=== PATIENT | female | born 1940 | race Caucasian/White ===

== ENCOUNTER 2018-12-29 18:24 | Inpatient (IN) | payer OTHER ==
[~2018-12-29] VITALS: Ht 157.5 cm; Wt 67.0 kg
[2018-12-29 19:05] LABS: BASOPHILS ABSOLUTE AUTO 0.03 K/mm3 (0.00-0.23); BASOPHILS PERCENT AUTO 0 % (0-2); EOSINOPHILS PERCENT AUTO 0 % (0-6); Hematocrit 43.2 % (33.0-51.0); Hemoglobin 13.8 g/dL (11.5-16.0); IMMATURE GRAN ABSOLUTE AUTO 0.09 K/mm3 (0.00-0.10); IMMATURE GRAN PERCENT AUTO 1 % (0-1); LYMPHOCYTES ABSOLUTE AUTO 0.85 K/mm3 (0.84-5.20); LYMPHOCYTES PERCENT AUTO 4 % (21-46); MONOCYTES PERCENT AUTO 10 % (4-13); Mean Corpuscular HGB 29.9 pg (26.0-34.0); Mean Corpuscular HGB Conc 31.9 g/dL (31.5-36.5); Mean Corpuscular Volume 94 fL (80-100); Mean Platelet Volume 10.8 fL (9.1-12.4); NEUTROPHILS ABSOLUTE AUTO 16.19 K/mm3 (1.96-9.15); NEUTROPHILS PERCENT AUTO 85 % (41-73); Platelet Count 243 K/mm3 (150-400); RDW Coefficient Variation 13.1 % (11.7-14.2); Red Blood Cell Count 4.62 M/mm3 (3.80-5.20); White Blood Cell Count 19.16 K/mm3 (4.00-11.30)
[2018-12-29 19:26] LABS: Alanine Aminotransfer (ALT/SGP 20 U/L (12-78); Albumin, Blood 3.3 g/dL (3.4-5.0); Albumin/Globulin Ratio 0.7 (0.8-1.8); Alk Phos 117 U/L (50-136); Anion Gap 6 mmol/L (6-16); Aspartate Aminotrans (AST/SGOT 19 U/L (12-37); Bilirubin, Total 0.8 mg/dL (0.1-1.0); Blood Urea Nitrogen 25 mg/dL (8-24); Bun/Creatinine Ratio 28.3 (12.0-20.0); CO2, Blood 26 mmol/L (21-32); Calcium, Blood 9.1 mg/dL (8.5-10.1); Chloride, Blood 101 mmol/L (98-108); Creatinine, Blood 0.88 mg/dL (0.40-1.00); Glomerular Filtration Rate >60 (60-); Glucose, Blood 124 mg/dL (70-99); Potassium, Blood 4.2 mmol/L (3.5-5.5); Sodium, Blood 133 mmol/L (136-145); Total Protein, Blood 8.3 g/dL (6.4-8.2)
[2018-12-29] MEDS ORDERED: Sudogest30 MG PO (20:41)
[2018-12-29] MEDS ORDERED: ALBU2.5V5 NEB (20:42)
--- NOTE | 2018-12-30 02:13 | NUR ---
woke up due to chest pain, Tele reported still in NSR rate 84, vs normal, provided tylenol and adjusted hob, stayed with pt until pain started to recede and she said she was going to go back to sleep, have continued to visually check and monitor via tele.
[2018-12-30 04:49] LABS: BASOPHILS ABSOLUTE AUTO 0.04 K/mm3 (0.00-0.23); BASOPHILS PERCENT AUTO 0 % (0-2); EOSINOPHILS ABSOLUTE AUTO 0.01 K/mm3 (0.00-0.68); EOSINOPHILS PERCENT AUTO 0 % (0-6); Hematocrit 37.1 % (33.0-51.0); Hemoglobin 11.6 g/dL (11.5-16.0); IMMATURE GRAN PERCENT AUTO 1 % (0-1); LYMPHOCYTES PERCENT AUTO 5 % (21-46); MONOCYTES ABSOLUTE AUTO 2.15 K/mm3 (0.16-1.47); MONOCYTES PERCENT AUTO 13 % (4-13); Mean Corpuscular HGB 29.6 pg (26.0-34.0); Mean Corpuscular HGB Conc 31.3 g/dL (31.5-36.5); Mean Corpuscular Volume 95 fL (80-100); Mean Platelet Volume 10.8 fL (9.1-12.4); NEUTROPHILS ABSOLUTE AUTO 12.91 K/mm3 (1.96-9.15); NEUTROPHILS PERCENT AUTO 81 % (41-73); Platelet Count 207 K/mm3 (150-400); RDW Coefficient Variation 12.9 % (11.7-14.2); Red Blood Cell Count 3.92 M/mm3 (3.80-5.20); White Blood Cell Count 16.01 K/mm3 (4.00-11.30)
--- NOTE | 2018-12-30 07:09 | NUR ---
a+o, 2L via nc, saline locked, no more complaints of chest pain, vss, NSR, walking rounds completed with day staff
--- NOTE | 2018-12-30 19:23 | NUR ---
SHIFT SUMMARY- PT HAS HAD NO ACUTE CHANGES T/O THE SHIFT. SOME C/O PAIN MEDICATED WITH TYLENOL WELL MANAGED, NO NORCO GIVEN AT THIS TIME. PASSED ON IN BEDSIDE REPORT TO NIGHT ARMANDO PATTERSON.
[2018-12-31 05:16] LABS: BASOPHILS ABSOLUTE AUTO 0.02 K/mm3 (0.00-0.23); BASOPHILS PERCENT AUTO 0 % (0-2); EOSINOPHILS ABSOLUTE AUTO 0.01 K/mm3 (0.00-0.68); EOSINOPHILS PERCENT AUTO 0 % (0-6); Hematocrit 34.4 % (33.0-51.0); Hemoglobin 10.6 g/dL (11.5-16.0); IMMATURE GRAN ABSOLUTE AUTO 0.09 K/mm3 (0.00-0.10); IMMATURE GRAN PERCENT AUTO 1 % (0-1); LYMPHOCYTES ABSOLUTE AUTO 1.07 K/mm3 (0.84-5.20); LYMPHOCYTES PERCENT AUTO 7 % (21-46); MONOCYTES ABSOLUTE AUTO 2.05 K/mm3 (0.16-1.47); MONOCYTES PERCENT AUTO 14 % (4-13); Mean Corpuscular HGB Conc 30.8 g/dL (31.5-36.5); Mean Platelet Volume 10.9 fL (9.1-12.4); NEUTROPHILS ABSOLUTE AUTO 11.82 K/mm3 (1.96-9.15); NEUTROPHILS PERCENT AUTO 79 % (41-73); Platelet Count 202 K/mm3 (150-400); RDW Coefficient Variation 13.1 % (11.7-14.2); RDW Standard Deviation 47.4 fL (35.1-46.3); Red Blood Cell Count 3.53 M/mm3 (3.80-5.20); White Blood Cell Count 15.06 K/mm3 (4.00-11.30)
[2018-12-31 05:18] LABS: Mean Corpuscular Volume 98 fL (80-100)
[2018-12-31 05:40] LABS: Anion Gap 6 mmol/L (6-16); Blood Urea Nitrogen 12 mg/dL (8-24); Bun/Creatinine Ratio 19.4 (12.0-20.0); CO2, Blood 26 mmol/L (21-32); Calcium, Blood 8.1 mg/dL (8.5-10.1); Chloride, Blood 108 mmol/L (98-108); Creatinine, Blood 0.62 mg/dL (0.40-1.00); Glomerular Filtration Rate >60 (60-); Glucose, Blood 94 mg/dL (70-99); Potassium, Blood 3.6 mmol/L (3.5-5.5); Sodium, Blood 140 mmol/L (136-145)
--- NOTE | 2018-12-31 15:16 | NUR ---
In to see patient for advance directive. And to review disease process care plan. pt just back to bed increased void from lasix. pt states dyspnea is orse and has chills temp taken pt 99.9. nursing notified and tylenol and breathing treatment requested. pt complains fo great fatigue from lack of sleep. will review care with spouse and assess pt further on next visit. will give AD information
--- NOTE | 2018-12-31 16:25 | NUR ---
SPOKE TO DR SANDERS- PT HAD AN EPISODE OF SOB RESP RATE OF 28 SLIGHT ELEVATION IN TEMP (99.6) MANAGED WITH TYLENOL. RESP RATE REDUCED AFTER BREATHING Tx. PT SEEMS TO BE MORE RELAXED AT THIS TIME. TELE DC'D THIS AFTERNOON.
--- NOTE | 2018-12-31 17:16 | NUR ---
SHIFT SUMMARY- PT HAS HAD SOME SOB TODAY. RECIEVED 20MG IV LASIX, SPOKE TO DR SANDERS PRIOR TO ADMINISTRATION ABOUT PT BP BEING LOW SBP 104. DOSE REDUCED FROM 40MG TO 20 MG. 20 MG GIVEN. PT HAS BEEN UP INTO THE BATHROOM MULTIPLE TIMES THIS SHIFT. NO C/O PAIN T/O THE SHIFT. ALERT AND ORIENTED, 1PA TO THE BATHROOM. CALL LIGHT IN REACH. NO S&S OF DISTRESS NOTED AT THIS TIME.
[2019-01-01 05:26] LABS: BASOPHILS ABSOLUTE AUTO 0.02 K/mm3 (0.00-0.23); BASOPHILS PERCENT AUTO 0 % (0-2); EOSINOPHILS ABSOLUTE AUTO 0.14 K/mm3 (0.00-0.68); EOSINOPHILS PERCENT AUTO 1 % (0-6); Hematocrit 34.2 % (33.0-51.0); Hemoglobin 10.6 g/dL (11.5-16.0); IMMATURE GRAN ABSOLUTE AUTO 0.06 K/mm3 (0.00-0.10); IMMATURE GRAN PERCENT AUTO 1 % (0-1); LYMPHOCYTES ABSOLUTE AUTO 1.02 K/mm3 (0.84-5.20); LYMPHOCYTES PERCENT AUTO 8 % (21-46); MONOCYTES ABSOLUTE AUTO 1.63 K/mm3 (0.16-1.47); MONOCYTES PERCENT AUTO 13 % (4-13); Mean Corpuscular HGB 29.5 pg (26.0-34.0); Mean Platelet Volume 10.6 fL (9.1-12.4); NEUTROPHILS ABSOLUTE AUTO 9.78 K/mm3 (1.96-9.15); NEUTROPHILS PERCENT AUTO 77 % (41-73); Platelet Count 243 K/mm3 (150-400); RDW Coefficient Variation 13.2 % (11.7-14.2); RDW Standard Deviation 46.4 fL (35.1-46.3); Red Blood Cell Count 3.59 M/mm3 (3.80-5.20); White Blood Cell Count 12.65 K/mm3 (4.00-11.30)
[2019-01-01 05:33] LABS: Mean Corpuscular Volume 95 fL (80-100)
--- NOTE | 2019-01-01 05:51 | NUR ---
SHIFT SUMMARY PT REPORTS SHE SLEPT WELL LAST NIGHT. AOX4. VSS. DENIES NAUSEA. REPORTS SOB W/ANY EXERTION SPO2 >90% ON 4L NC, LUNGS SOUND COURSE IN BILATERAL LOWER LOBES. PT REPORTS 8/10 PAIN DUE TO A HEADACHE & R SIDE/RIB PAIN THAT MAKES IT "HURT W/ BREATHING," PT MEDICATED 1X W/NORCO & 2X W/TYLENOL FOR HER PAIN & SHE REPORTS IT HELPS. CALL LIGHT IS IN REACH & I WILL CONT TO MONITOR PT.
[2019-01-01 06:15] LABS: Anion Gap 5 mmol/L (6-16); Blood Urea Nitrogen 10 mg/dL (8-24); Bun/Creatinine Ratio 17.2 (12.0-20.0); CO2, Blood 32 mmol/L (21-32); Calcium, Blood 8.8 mg/dL (8.5-10.1); Chloride, Blood 103 mmol/L (98-108); Creatinine, Blood 0.58 mg/dL (0.40-1.00); Glomerular Filtration Rate >60 (60-); Glucose, Blood 92 mg/dL (70-99); Potassium, Blood 3.3 mmol/L (3.5-5.5); Sodium, Blood 140 mmol/L (136-145)
--- NOTE | 2019-01-01 16:29 | NUR ---
SHIFT SUMMARY PATIENT A&O X4, INDEPENDENT IN THE ROOM. C/O RIGHT SIDED ABD PAIN WHEN COUGHING. RN MEDICATED X2 PER E DEC. SOB WITH ACTIVITY. 02 @ 1L NC, SATS >90%. PATIENT RESTED MOST OF THE DAY. NO ACUTE CHANGES. BED IN LOWEST POSITION, CALL LIGHT WITHIN REACH.
--- NOTE | 2019-01-02 04:58 | NUR ---
SHIFT SUMMARY PT SLEPT WELL T/O NIGHT. NO ACUTE CHANGES THIS SHIFT. AOX4. VSS. DENIES N/V. REPORTS BREATHING FEELS "LIKE IT'S BACK TO NORMAL BESIDES MY COUGHING." LUNGS SOUND DIMINISHED IN UPPER LOBES W/CRACKLES IN THE BASES, SPO2 >90% ON 1L NC. PT REPORTS RIGHT SIDE/CHEST PAIN W/COUGHING & DEEP BREATHING & STATES IT "FEELS LIKE PLEURISY PAIN," PT MEDICATED 1X W/NORCO & 1X W/TYLENOL PER ORDERS. CALL LIGHT IS IN REACH & I WILL CONTINUE TO MONITOR PT.
[2019-01-02 05:08] LABS: BASOPHILS ABSOLUTE AUTO 0.01 K/mm3 (0.00-0.23); BASOPHILS PERCENT AUTO 0 % (0-2); EOSINOPHILS PERCENT AUTO 0 % (0-6); Hematocrit 35.1 % (33.0-51.0); Hemoglobin 10.9 g/dL (11.5-16.0); IMMATURE GRAN PERCENT AUTO 1 % (0-1); LYMPHOCYTES ABSOLUTE AUTO 0.74 K/mm3 (0.84-5.20); LYMPHOCYTES PERCENT AUTO 7 % (21-46); MONOCYTES ABSOLUTE AUTO 0.94 K/mm3 (0.16-1.47); MONOCYTES PERCENT AUTO 8 % (4-13); Mean Corpuscular HGB 29.1 pg (26.0-34.0); Mean Corpuscular HGB Conc 31.1 g/dL (31.5-36.5); Mean Corpuscular Volume 94 fL (80-100); Mean Platelet Volume 10.1 fL (9.1-12.4); NEUTROPHILS ABSOLUTE AUTO 9.36 K/mm3 (1.96-9.15); NEUTROPHILS PERCENT AUTO 84 % (41-73); Platelet Count 306 K/mm3 (150-400); RDW Coefficient Variation 13.2 % (11.7-14.2); RDW Standard Deviation 45.2 fL (35.1-46.3); Red Blood Cell Count 3.74 M/mm3 (3.80-5.20); White Blood Cell Count 11.15 K/mm3 (4.00-11.30)
[2019-01-02 05:42] LABS: Anion Gap 4 mmol/L (6-16); Blood Urea Nitrogen 13 mg/dL (8-24); Bun/Creatinine Ratio 23.7 (12.0-20.0); CO2, Blood 34 mmol/L (21-32); Calcium, Blood 9.1 mg/dL (8.5-10.1); Chloride, Blood 102 mmol/L (98-108); Creatinine, Blood 0.55 mg/dL (0.40-1.00); Glomerular Filtration Rate >60 (60-); Glucose, Blood 120 mg/dL (70-99); Sodium, Blood 140 mmol/L (136-145)
--- NOTE | 2019-01-02 16:54 | NUR ---
SHIFT SUMMARY- PT A/O X4, INDEP IN ROOM. PT MEDICATED X1 WITH NORCO FOR RIGHT SIDED PAIN. LS DIMINISHED WITH SLIGHT COARSENESS TO RUL. ON 2-4L N/C, SATS DROPPED AFTER SHOWER REQUIRING 4L. BARIUM SWALLOW SCHEDULED FOR TOMORROW. NO OTHER ACUTE CHANGES THIS SHIFT.
--- NOTE | 2019-01-03 05:49 | NUR ---
SHIFT SUMMARY PT SLEPT SOUNDLY T/O NIGHT. NO ACUTE CHANGES. AOX4. VSS. DENIES N/V. REPORTS SOB W/EXERTION, YET STATES HER BREATHING "FEELS ALOT BETTER" & "ALMOST BACK TO NORMAL." SPO2 >90% ON 2L NC, E/U BREATHING. PT STILL REPORTS 8/10 RIGHT SIDE/CHEST PAIN & STATES "IT FEELS LIKE PLEURISY," MEDICATED PER ORDERS. CALL LIGHT IS IN REACH & I WILL CONTINUE TO MONITOR.
--- NOTE | 2019-01-03 18:32 | NUR ---
SHIFT SUMMARY ABIMBOLA'S VSS WERE STABLE THIS SHIFT. STILL ON 2L OLXYGEN AND UNABLE TO WEAN DOWN AT THIS POINT (90%), SLIGHT R CHEST PLEURITIC PAIN RELIEVED BY TYLENOL. INDEP IN ROOM, GI CONSULT NAN CAME, STILL AWAITING ESOPHOGRAM RESULTS FROM EARLIER TODAY. WCTM
--- NOTE | 2019-01-04 05:14 | NUR ---
VSS, AFEBRILE, A/O. PT IS INDEPENDENT IN THE ROOM BUT WILL CALL FOR ASSISTANCE TO LEAVE THE BATHROOM SAFELY. BISHOP, SOB IN BED, C/O GENERALIZED NON-SPECIFIC PAIN AND/OR PLEURITIC PAIN R FLANK. PT MEDICATED FOR PAIN X 1 DURING THIS SHIFT. PT SLEPT WELL AFTER THAT. WILL REPORT TO ON-COMING SHIFT.
--- NOTE | 2019-01-04 18:38 | NUR ---
PATIENT ALERT AND ORIENTED. VERY [place]. ANXIOUS. DOES NOT ALWAYS CALL WHEN HAS TO USE BATHROOM. WILL PROBABLY HAVE HOME OXYGEN EVAL TOMORROW AND GET DISCHARGED. COOPERATIVE. MOIST SOUNDING NONPRODUCTIVE COUGH. HAS PAIN TO RT LAT RIBS FROM COUGHING. LIDOCAINE PATCH CAME OFF AFTER SHOWER. MEDICATED FOR PAIN WITH GOOD RESULTS. WILL CONTINUE TO MONITOR.
--- NOTE | 2019-01-05 03:58 | NUR ---
SHIFT SUMMARY PT ADMITTED FOR SEPSIS SECONDARY TO RLL PNEUMONIA PER REPORT. FULL CODE. REGULAR DIET. PT TO AMBULATE IN THE [place] WITH O2 SETUP AND SUPERVISION WITH A GAITBELT TID. PT WALKS SLOWLY AND HAS VISUAL IMPAIREMENT PER REPORT. PT TO ALSO BE UP IN CHAIR TID. LOVENOX FOR DVT PROPHYLAXIS. 2L O2 AND PT WILL NEED A HOME O2 EVALUATION PRIOR TO DISCHARGE WITH IS EXPECTED TO BE TODAY PER PT. 20G IV TO THE R AC. TAKES MEDICATIONS WHOLE VERY WELL LONG PT IS SITTING UP WELL. [place]. PER REPORT PT WILL FOLLOWUP WITH AN EGD ON AN OUT PATIENT BASIS. 1 PERSON SBA IN ROOM. THE PT HAS APPEARED TO REST COMFORTABLY SO FAR THIS SHIFT UNTIL RECENTLY WHEN THE PT WOKE TO USE THE BR AND HAD C/O R LATERALY SIDE/BACK PAIN. MEDICATED PER EMAR. THE PT IS CURRENTLY SITTING UP AT HER BEDSIDE WITH NO APPARENT SIGNS OF ACUTE DISTRESS. ABLE TO MAKE NEEDS KNOWN AND CALL LIGHT IN REACH.
[2019-01-05] MEDS ORDERED: FAMO20 PO (15:44)
[2019-01-05] MEDS ORDERED: ALBU2.5V5 NEB (15:44)
[2019-01-05] MEDS ORDERED: CEFP200 PO (15:45)
[2019-01-05] MEDS ORDERED: FLUT1DIS5 INH (15:45)
[2019-01-05] MEDS ORDERED: ALBU3IS INH (15:45)
--- NOTE | 2019-01-05 16:20 | NUR ---
PATIENT D/C'D TO HOME WITH . D/C INSTRUCTIONS AND EDUCATION DISCUSSED WITH PATIENT AND COPY PROVIDED. RX MEDICATIONS FAXED TO [facility]. [place] DROPPED OFF PORTABLE O2 TANK AND PATIENT INSTRUCTED ON USE. PATIENT DENIES ANY FURTHER QUESTIONS OR CONCERNS.
== END 2019-01-05 16:03 | disposition home or self-care (01) | DRG 871 ==
LOC: DELPENDDIS → ER 18:24 → MEDS 18:25 → ENPENDDIS 01-04 12:30 → MEDS 01-05 16:03
PROVIDERS: Internal Medicine; Physician Assistant; ADMIT Hospitalist
DX: A41.9 Sepsis, unspecified organism (principal); J96.01 Acute respiratory failure with hypoxia; J18.9 Pneumonia, unspecified organism; E87.1 Hypo-osmolality and hyponatremia; E44.1 Mild protein-calorie malnutrition; K44.9 Diaphragmatic hernia without obstruction or gangrene; J44.9 Chronic obstructive pulmonary disease, unspecified; J45.909 Unspecified asthma, uncomplicated; Z68.26 Body mass index [BMI] 26.0-26.9, adult; Z87.891 Personal history of nicotine dependence
CPT/HCPCS: 36415; 71046; 74220; 80048; 80053; 83605; 85025; 87040; 92610; 93005; 93010; 94640; 94760; 94761; 96361; 96365; 96372; 97110; 97161; 99285-25; A9270-GY; G0378; J0456; J0696; J1650; J1940; J1956; J2920; J7030; J7050; J7120

== ENCOUNTER 2019-05-03 11:48 | Day surgery (SDC) | payer OTHER ==
[~2019-05-03] VITALS: Ht 157.5 cm; Wt 67.5 kg
[~2019-05-03 11:48] MED LIST: ALBU2.5V5 NEB; ALBU3IS INH; CEFP200 PO; FAMO20 PO; FLUT1DIS5 INH; Sudogest30 MG PO
[2019-05-03] MEDS ORDERED: FLUT1DIS2 (12:13)
[2019-05-03] MEDS ORDERED: ADAL40PEN (12:13)
--- NOTE | 2019-05-03 12:28 | NUR ---
05/03/19 1228 Yvette Tompkins WITH 5CC 4% LIDOCAINE VIA INHALATION [address] HERNANDEZ
== END 2019-05-03 13:27 | disposition home or self-care (01) ==
LOC: ORSCSDS 11:48
PROVIDERS: Internal Medicine Gastroenterology
PROC: 0D758ZZ Dilation of Esophagus, Via Natural or Artificial Opening Endoscopic (ICD-10-PCS; principal; 2019-05-03 12:30)
PROC: 0DB68ZX Excision of Stomach, Via Natural or Artificial Opening Endoscopic, Diagnostic (ICD-10-PCS; principal; 2019-05-03 12:30)
DX: R13.10 Dysphagia, unspecified (principal); K25.9 Gastric ulcer, unspecified as acute or chronic, without hemorrhage or perforation; J44.9 Chronic obstructive pulmonary disease, unspecified; K22.8 Other specified diseases of esophagus; K44.9 Diaphragmatic hernia without obstruction or gangrene; K29.80 Duodenitis without bleeding; Z87.891 Personal history of nicotine dependence; Z79.899 Other long term (current) drug therapy
CPT/HCPCS: 88305; 88342; C1726; J2001; J2704; J7120

== ENCOUNTER 2021-03-05 09:10 | Day surgery (SDC) | payer OTHER ==
[~2021-03-05] VITALS: Ht 157.5 cm; Wt 57.1 kg
[~2021-03-05 09:10] MED LIST changes: +ADAL40PEN; +FLUT1DIS2
--- NOTE | 2021-03-05 10:07 | NUR ---
03/05/21 Tiffany Pretty ANESTHESIA IN AN OR CASE, WILL START CASE WHEN HE IS DONE.
--- NOTE | 2021-03-05 10:46 | NUR ---
03/05/21 1046 Tiffany Brand PT ALSO DILATED WITH 15-18 ESOPHAGEAL BALLOON DILATOR.
== END 2021-03-05 11:29 | disposition home or self-care (01) ==
LOC: ORSCSDS 09:10
PROVIDERS: Internal Medicine Gastroenterology
PROC: 0DB98ZX Excision of Duodenum, Via Natural or Artificial Opening Endoscopic, Diagnostic (ICD-10-PCS; principal; 2021-03-05 11:45)
PROC: 0D758ZZ Dilation of Esophagus, Via Natural or Artificial Opening Endoscopic (ICD-10-PCS; principal; 2021-03-05 11:45)
PROC: 0DB58ZX Excision of Esophagus, Via Natural or Artificial Opening Endoscopic, Diagnostic (ICD-10-PCS; principal; 2021-03-05 11:45)
DX: R13.12 Dysphagia, oropharyngeal phase (principal); R93.3 Abnormal findings on diagnostic imaging of other parts of digestive tract; K20.80 Other esophagitis without bleeding; K22.2 Esophageal obstruction; K44.9 Diaphragmatic hernia without obstruction or gangrene; Z87.891 Personal history of nicotine dependence; J44.9 Chronic obstructive pulmonary disease, unspecified; Z99.81 Dependence on supplemental oxygen; Z79.899 Other long term (current) drug therapy
CPT/HCPCS: 88305; C1726; J2704; J3010; J7120